=== PATIENT | male | born 1965 | race Asian ===

== ENCOUNTER 2019-12-25 20:59 | Emergency (ER) | payer OTHER ==
[~2019-12-25] VITALS: Ht 170.2 cm; Wt 68.0 kg
[~2019-12-25 20:59] MED LIST: Roxicodone5 MG PO
== END 2019-12-25 23:52 | disposition home or self-care (01) ==
LOC: ER 20:59
DX: T14.8XXA Other injury of unspecified body region, initial encounter (principal); I10 Essential (primary) hypertension; Z87.891 Personal history of nicotine dependence; V29.9XXA Motorcycle rider (driver) (passenger) injured in unspecified traffic accident, initial encounter
CPT/HCPCS: 73590; 90471; 90714; 99283-25

== ENCOUNTER 2020-05-04 13:51 | Emergency (ER) | payer OTHER ==
[~2020-05-04] VITALS: Ht 172.7 cm; Wt 70.3 kg
[2020-05-04 14:34] LABS: BASOPHILS ABSOLUTE AUTO 0.08 K/mm3 (0.00-0.23); BASOPHILS PERCENT AUTO 1 % (0-2); EOSINOPHILS PERCENT AUTO 1 % (0-6); Hematocrit 48.8 % (37.0-53.0); Hemoglobin 16.5 g/dL (13.5-17.5); IMMATURE GRAN ABSOLUTE AUTO 0.03 K/mm3 (0.00-0.10); IMMATURE GRAN PERCENT AUTO 0 % (0-1); LYMPHOCYTES ABSOLUTE AUTO 2.09 K/mm3 (0.84-5.20); LYMPHOCYTES PERCENT AUTO 20 % (21-46); MONOCYTES ABSOLUTE AUTO 0.89 K/mm3 (0.16-1.47); MONOCYTES PERCENT AUTO 8 % (4-13); Mean Corpuscular HGB Conc 33.8 g/dL (31.5-36.5); Mean Corpuscular Volume 86 fL (80-100); Mean Platelet Volume 9.8 fL (9.1-12.4); NEUTROPHILS ABSOLUTE AUTO 7.47 K/mm3 (1.96-9.15); NEUTROPHILS PERCENT AUTO 70 % (41-73); Platelet Count 244 K/mm3 (150-400); RDW Coefficient Variation 12.7 % (11.7-14.2); RDW Standard Deviation 39.6 fL (35.1-46.3); Red Blood Cell Count 5.69 M/mm3 (4.30-5.90); White Blood Cell Count 10.66 K/mm3 (4.00-11.30)
[2020-05-04 14:56] LABS: Alanine Aminotransfer (ALT/SGP 24 U/L (12-78); Albumin, Blood 4.1 g/dL (3.4-5.0); Alk Phos 73 U/L (50-136); Anion Gap 6 mmol/L (6-16); Aspartate Aminotrans (AST/SGOT 19 U/L (12-37); Bilirubin, Total 0.9 mg/dL (0.1-1.0); Blood Urea Nitrogen 12 mg/dL (8-24); Bun/Creatinine Ratio 12.6 (12.0-20.0); CO2, Blood 23 mmol/L (21-32); Calcium, Blood 10.8 mg/dL (8.5-10.1); Chloride, Blood 108 mmol/L (98-108); Creatinine, Blood 0.96 mg/dL (0.60-1.20); Glomerular Filtration Rate >60 (60-); Glucose, Blood 103 mg/dL (70-99); Potassium, Blood 3.5 mmol/L (3.5-5.5); Sodium, Blood 137 mmol/L (136-145); Total Protein, Blood 8.1 g/dL (6.4-8.2)
== END 2020-05-04 15:39 | disposition home or self-care (01) ==
LOC: ER 13:51
PROVIDERS: Emergency Medicine
DX: I10 Essential (primary) hypertension (principal); Z87.891 Personal history of nicotine dependence
CPT/HCPCS: 36415; 80053; 85025; 93005; 93010; 99283-25

== ENCOUNTER 2020-09-04 08:59 | Emergency (ER) | payer OTHER ==
[~2020-09-04] VITALS: Ht 170.2 cm; Wt 69.4 kg
[2020-09-04] MEDS ORDERED: TRAM50 PO (09:24)
[2020-09-04] MEDS ORDERED: BP MED (09:25)
[2020-09-04] MEDS ORDERED: CYCL10 PO (09:57)
[2020-09-04] MEDS ORDERED: LIDOCAINE1 EAC1 TOP (09:57)
[2020-09-04] MEDS ORDERED: IBUP600 PO (09:57)
== END 2020-09-04 10:18 | disposition home or self-care (01) ==
LOC: ER 08:59
DX: M54.5 Low back pain (principal); I10 Essential (primary) hypertension; Z87.891 Personal history of nicotine dependence
CPT/HCPCS: 96372; 99283; A9270; J1885

== ENCOUNTER 2021-01-12 08:54 | Emergency (ER) | payer OTHER ==
[~2021-01-12] VITALS: Ht 170.2 cm; Wt 68.0 kg
[~2021-01-12 08:54] MED LIST changes: +BP MED; +CYCL10 PO; +IBUP600 PO; +LIDOCAINE1 EAC1 TOP; +TRAM50 PO
== END 2021-01-12 09:28 | disposition home or self-care (01) ==
LOC: ER 08:54
DX: M25.561 Pain in right knee (principal); I10 Essential (primary) hypertension; Z87.891 Personal history of nicotine dependence; Z79.899 Other long term (current) drug therapy
CPT/HCPCS: 99283